=== PATIENT | male | born 1960 | race Caucasian/White ===

== ENCOUNTER 2019-07-30 10:20 | Inpatient (IN) | payer OTHER ==
[2019-07-30] VITALS (10 sets, daily range): BP systolic 118–157; BP diastolic 74–98
[~2019-07-30] VITALS: Ht 177.8 cm; Wt 81.7 kg
[2019-07-30] MEDS ORDERED: ATENOLOL25 MG ORAL (10:25)
[2019-07-30] MEDS ORDERED: Ketorolac 30mg Inj IV ONE (10:30)
[2019-07-30] MEDS ORDERED: Morphine Sulfate 4mg/ml Inj (IV USE ONLY) IVP ONE ×2 (10:30→11:45)
--- NOTE | 2019-07-30 10:34 | Emergency Room Report ---
History of Present Illness General Chief Complaint: Abdominal Pain Source: Patient Present Illness HPI Disclaimer: Please note that this report is being documented using DRAGON technology. This can lead to erroneous entry secondary to incorrect interpretation by the dictating instrument. HPI: 59-year-old male presents for evaluation of abdominal pain. He arrives by EMS after pulling over to the side of the road for sudden onset abdominal pain. He states he was in his usual state of health this morning aside from one episode of diarrhea. While driving from work he experienced sudden onset sharp 10/10 nonradiating left-sided lower pain radiating in the left groin. No injury was reported. He has a history of kidney stones but denied any flank pain, recent dysuria, hematuria. He states it feels somewhat like a kidney stone but far more intense. He is now complaining of pain in the suprapubic region as well. Had one episode of emesis. Denies recent fever, chills, URI symptoms, cough, chest pain, palpitations. Denies any pain in the upper abdomen , GERD-like symptoms. Denies history of pancreatitis, hepatitis or alcohol abuse. PMH: Hypertension, kidney stones PSH: Knee replacement Allergies: Denies Social Hx: Occasional alcohol use Allergies: Coded Allergies: No Known Allergies (Unverified , 07/30/19) COVID-19 Screening Contact w/high risk pt: No Recent Travel to affected area: No Experienced COVID-19 symptoms?: No Nursing Documentation-PMH Past Medical History: No History, Except For Hx Hypertension: Yes - RIGHT KNEE REPLACEMENT Review of Systems All Other Systems: negative except mentioned in HPI Physical Exam Vital Signs Date Time Temp Pulse Resp B/P (MAP) Pulse Ox O2 Delivery O2 Flow Rate FiO2 07/30/19 10:18 97.9 80 16 126/74 (91) 99 Room Air General: Awake and alert, appears uncomfortable, tremulous HEENT: NC/AT. EOMI. Cardiovascular: RRR. S1 and S2 normal. No murmur appreciated Resp: Normal work of breathing. No cough, wheezing or crackles appreciated Abdomen: Abdomen is soft, nondistended. Tenderness palpation in the left lower quadrant, suprapubic and the right lower quadrant without rebound. No tenderness in the upper quadrants. Skin: Intact. No abrasions, laceration or rash over the exposed skin MSK: Normal tone and bulk. Moving all extremities. No obvious deformity. Neuro: Awake and alert. Mentating appropriately. Procedures Critical Care Time Critical Care Time Total critical care time: Approximately 31 minutes Due to a high probability of clinically significant, life threatening deterioration, the patient required the highest level of preparedness to intervene emergently and I personally spent this critical care time directly and personally managing the patient. This critical care time included obtaining a history, examining the patient, pulse oximetry, ordering and reviewing studies , ordering treatments, evaluating response to treatment and updating management plan as needed, frequent reassessment and discussion with other providers as well as arranging for ultimate disposition. This critical to care time was performed to assess and manage the high probability of life-threatening deterioration that could result in multiorgan failure. This critical care time is separate from the separately billable procedures and treating other patients. Medical Decision Making Diagnostic Impression: Primary Impression: Perforated diverticulum of large intestine ER Course This a 59-year-old male presenting for evaluation of sudden onset left-sided abdominal pain rating to the groin. Differential includes was not limited to UTI, pyelonephritis, nephrolithiasis, inguinal hernia, mesenteric ischemia, appendicitis, bowel obstruction, bowel perforation, intra-abdominal abscess, diverticulitis. Given the patient's history and physical exam concern for obstructing kidney stone at this time. Will send for stat noncontrast CT, draw labs, start IV fluids, keep patient n.p.o. Provide IV pain medication and antiemetics. Advance work-up as needed. Laboratory Tests Test 07/30/19 10:30 07/30/19 11:40 White Blood Count 12.9 K/UL (4.8-10.8) H Red Blood Count 5.34 M/UL (4.70-6.10) Hemoglobin 16.2 G/DL (14.2-18.0) Hematocrit 45.5 % (42.0-52.0) Mean Corpuscular Volume 85 FL (80-99) Mean Corpuscular Hemoglobin 30.4 PG (27.0-31.0) Mean Corpuscular Hemoglobin Concent 35.7 G/DL (32.0-36.0) Red Cell Distribution Width 11.1 % (11.6-14.8) L Platelet Count 185 K/UL (150-450) Mean Platelet Volume 9.4 FL (6.5-10.1) Neutrophils (%) (Auto) 79.4 % (45.0-75.0) H Lymphocytes (%) (Auto) 16.0 % (20.0-45.0) L Monocytes (%) (Auto) 3.4 % (1.0-10.0) Eosinophils (%) (Auto) 0.8 % (0.0-3.0) Basophils (%) (Auto) 0.4 % (0.0-2.0) Prothrombin Time 10.8 SEC (9.30-11.50) Prothrombin Time INR 1.0 (0.9-1.1) Activated Partial Thromboplast Time 23 SEC (23-33) Sodium Level 144 MMOL/L (136-145) Potassium Level 4.1 MMOL/L (3.5-5.1) Chloride Level 103 MMOL/L (98-107) Carbon Dioxide Level 25 MMOL/L (21-32) Anion Gap 16 mmol/L (5-15) H Blood Urea Nitrogen 23 mg/dL (7-18) H Creatinine 1.1 MG/DL (0.55-1.30) Estimated Glomerular Filtration Rate > 60 mL/min (>60) Glucose Level 133 MG/DL (74-106) H Calcium Level 10.1 MG/DL (8.5-10.1) Total Bilirubin 1.1 MG/DL (0.2-1.0) H Direct Bilirubin 0.2 MG/DL (0.0-0.3) Aspartate Amino Transferase (AST) 30 U/L (15-37) Alanine Aminotransferase (ALT) 51 U/L (12-78) Alkaline Phosphatase 113 U/L (46-116) Total Protein 8.1 G/DL (6.4-8.2) Albumin 4.8 G/DL (3.4-5.0) Globulin 3.3 g/dL Albumin/Globulin Ratio 1.5 (1.0-2.7) Lipase 105 U/L (73-393) Lactic Acid Level 2.10 mmol/L (0.4-2.0) H Reevaluation Time: 11:40 Last Vital Signs Date Time Temp Pulse Resp B/P (MAP) Pulse Ox O2 Delivery O2 Flow Rate FiO2 07/30/19 10:18 97.9 80 16 126/74 (91) 99 Room Air Reevaluation Impression Alerted by radiology of a possible perforated diverticulitis. Patient was given Zosyn and a surgical consult was called. Will send type and screen as well as coagulation studies as part of preop labs. White count slightly elevated with a neutrophil predominance. Slight elevation in lactate 2.1. The patient is receiving IV fluids and antibiotics. Additional pain medication ordered. Patient will be kept n.p.o and taken to OR by Dr. Sagastume. Will admit to covering physician for [facility] Dr[facility], who agrees with this treatment plan. Disposition: ADMITTED INPATIENT Condition: Serious Asad Parkinson MD Jul 30, 2019 10:34
[2019-07-30 10:46] LABS: BASOPHILS % (AUTO) 0.4 % (0.0-2.0); EOSINOPHILS % (AUTO) 0.8 % (0.0-3.0); HEMATOCRIT 45.5 % (42.0-52.0); HEMOGLOBIN 16.2 G/DL (14.2-18.0); MEAN CORPUSCULAR VOLUME 85 FL (80-99); MONOCYTES % (AUTO) 3.4 % (1.0-10.0); NEUTROPHILS % (AUTO) 79.4 % (45.0-75.0); PLATELET COUNT 185 K/UL (150-450); RED BLOOD COUNT 5.34 M/UL (4.70-6.10); RED CELL DISTRIBUTION WIDTH 11.1 % (11.6-14.8); WHITE BLOOD COUNT 12.9 K/UL (4.8-10.8)
[2019-07-30 10:58] LABS: ANION GAP 16 mmol/L (5-15); BLOOD UREA NITROGEN 23 mg/dL (7-18); CALCIUM 10.1 MG/DL (8.5-10.1); CARBON DIOXIDE 25 MMOL/L (21-32); CHLORIDE 103 MMOL/L (98-107); CREATININE 1.1 MG/DL (0.55-1.30); POTASSIUM 4.1 MMOL/L (3.5-5.1); SODIUM 144 MMOL/L (136-145)
[2019-07-30 11:11] LABS: ALANINE AMINOTRANSFERASE 51 U/L (12-78); ALBUMIN 4.8 G/DL (3.4-5.0); ALBUMIN/GLOBULIN RATIO 1.5 (1.0-2.7); ALKALINE PHOSPHATASE 113 U/L (46-116); ASPARTATE AMINO TRANSFERASE 30 U/L (15-37); BILIRUBIN,TOTAL 1.1 MG/DL (0.2-1.0)
[2019-07-30 11:13] LABS: BILIRUBIN,DIRECT 0.2 MG/DL (0.0-0.3)
[2019-07-30] MEDS ORDERED: Piperacillin/Tazobactam 3.375 GM in NS 110 ML IVPB ONE (11:45)
--- NOTE | 2019-07-30 12:11 | Pre-Procedure Note/Attestation ---
Pre-Procedure Note/Attestation Complete Prior to Procedure Procedure Narrative: diagnostic laparoscopy, possible exploratory laparotomy, possible bowel resection, possible ostomy Indications for Procedure Pre-Operative Diagnosis: perforated viscus, acute abdomen Attestation I attest that I discussed the nature of the procedure; its benefits; risks and complications; and alternatives (and the risks and benefits of such alternatives ), prior to the procedure, with the patient (or the patient's legal life assurance representative). I attest that, if there was a reasonable possibility of needing a blood transfusion, the patient (or the patient's legal life assurance representative) was given the [facility] standardized written summary, pursuant to the Asif Rahel Blood Safety Act ([place] Health and Safety Code # 1645, as amended). I attest that I re-evaluated the patient just prior to the surgery and that there has been no change in the patient's H&P, except as documented below: Rodrigo Sagastume Jul 30, 2019 12:11
--- NOTE | 2019-07-30 12:18 | Consultation ---
History of Present Illness General Reason for Hospitalization: Abdominal Pain Present Illness HPI This is a very pleasant 59-year-old male with history of hypertension and prior kidney stones that presented to [facility] for evaluation of acute onset of abdominal pain with nausea and emesis. Patient arrives by EMS after pulling over to the side of the road for sudden onset abdominal pain with multiple bouts of nonbloody emesis on the side of the road. He states he was in his usual state of health this morning, had breakfast, and thn went to work. While driving home from work he experienced sudden onset sharp 10/10 nonradiating left-sided lower pain radiating in the left groin. He initially believed it may be a kidney stone or potentially pulling a muscle. He has a history of kidney stones but denied any flank pain, recent dysuria, hematuria. He states it feels somewhat like a kidney stone but far more intense. In the emergency department was identified to have any acute abdomen imaging performed identifying likely perforated diverticulitis. Surgery was called to evaluate. Patient seen, patient evaluated, chart reviewed. Patient seen in the emergency department and states that he has 10 out of 10 pain and is very uncomfortable. He has pain with movement. Currently no nausea or vomiting. He has no known history of diverticulitis that he is aware of. Allergies: Coded Allergies: No Known Allergies (Unverified , 07/30/19) COVID-19 Screening Contact w/high risk pt: No Recent Travel to affected area: No Experienced COVID-19 symptoms?: No Medication History Scheduled Atenolol* (Tenormin*), Unknown Dose ORAL DAILY, (Reported) Patient History History Provided By: Patient, Medical Record, PMD Healthcare decision maker Resuscitation status Advanced Directive on File Past Medical/Surgical History Past Medical/Surgical History: (1) Perforated diverticulum of large intestine Review of Systems Review of Symptoms General ROS: no weight loss or fever Psychological ROS: no depression or mood changes, no memory loss Ophthalmic ROS: no visual changes or eye irritation ENT ROS: no nasal congestion, hearing loss, dizziness Allergy and Immunology ROS: no allergic symptoms or urticaria Hematological and Lymphatic ROS: no swollen glands, unusual bleeding or bruising Endocrine ROS: no polyuria, polydipsia, weight changes, temperature intolerance Respiratory ROS: no cough, shortness of breath, or wheezing Cardiovascular ROS: no chest pain or dyspnea on exertion Gastrointestinal ROS: abdominal pain, no bright red blood in stool. Musculoskeletal ROS: no myalgias or arthralgias Neurological ROS: no TIA or stroke symptoms Dermatological ROS: no new or changing skin lesions, rashes or pruritis Physical Exam Physical Exam General appearance: alert, cooperative, no distress, appears stated age Head: Normocephalic, without obvious abnormality, atraumatic Eyes: conjunctivae/corneas clear. PERRL, EOM's intact. Fundi benign Throat: Lips, mucosa, and tongue normal. Teeth and gums normal Neck: supple, symmetrical, trachea midline, no adenopathy, thyroid: not enlarged, symmetric, no tenderness/mass/nodules, no carotid bruit and no JVD Lungs: clear to auscultation bilaterally Heart: regular rate and rhythm, S1, S2 normal, no murmur, click, rub or gallop Abdomen: rigid, tender, peritonitis, rebound, guarding. Extremities: extremities normal, atraumatic, no cyanosis or edema Pulses: 2+ and symmetric Skin: Skin color, texture, turgor normal. No rashes or lesions Neurologic: Grossly normal Last 24 Hour Vital Signs Date Time Temp Pulse Resp B/P (MAP) Pulse Ox O2 Delivery O2 Flow Rate FiO2 07/30/19 11:06 97.9 07/30/19 11:05 97.9 07/30/19 10:28 80 16 Room Air 07/30/19 10:20 97.9 86 15 126/74 99 Room Air 07/30/19 10:18 97.9 80 16 126/74 (91) 99 Room Air Laboratory Tests Test 07/30/19 10:30 07/30/19 11:40 White Blood Count 12.9 K/UL (4.8-10.8) H Red Blood Count 5.34 M/UL (4.70-6.10) Hemoglobin 16.2 G/DL (14.2-18.0) Hematocrit 45.5 % (42.0-52.0) Mean Corpuscular Volume 85 FL (80-99) Mean Corpuscular Hemoglobin 30.4 PG (27.0-31.0) Mean Corpuscular Hemoglobin Concent 35.7 G/DL (32.0-36.0) Red Cell Distribution Width 11.1 % (11.6-14.8) L Platelet Count 185 K/UL (150-450) Mean Platelet Volume 9.4 FL (6.5-10.1) Neutrophils (%) (Auto) 79.4 % (45.0-75.0) H Lymphocytes (%) (Auto) 16.0 % (20.0-45.0) L Monocytes (%) (Auto) 3.4 % (1.0-10.0) Eosinophils (%) (Auto) 0.8 % (0.0-3.0) Basophils (%) (Auto) 0.4 % (0.0-2.0) Prothrombin Time 10.8 SEC (9.30-11.50) Prothromb Time International Ratio 1.0 (0.9-1.1) Activated Partial Thromboplast Time 23 SEC (23-33) Sodium Level 144 MMOL/L (136-145) Potassium Level 4.1 MMOL/L (3.5-5.1) Chloride Level 103 MMOL/L (98-107) Carbon Dioxide Level 25 MMOL/L (21-32) Anion Gap 16 mmol/L (5-15) H Blood Urea Nitrogen 23 mg/dL (7-18) H Creatinine 1.1 MG/DL (0.55-1.30) Estimat Glomerular Filtration Rate > 60 mL/min (>60) Glucose Level 133 MG/DL (74-106) H Calcium Level 10.1 MG/DL (8.5-10.1) Total Bilirubin 1.1 MG/DL (0.2-1.0) H Direct Bilirubin 0.2 MG/DL (0.0-0.3) Aspartate Amino Transf (AST/SGOT) 30 U/L (15-37) Alanine Aminotransferase (ALT/SGPT) 51 U/L (12-78) Alkaline Phosphatase 113 U/L (46-116) Total Protein 8.1 G/DL (6.4-8.2) Albumin 4.8 G/DL (3.4-5.0) Globulin 3.3 g/dL Albumin/Globulin Ratio 1.5 (1.0-2.7) Lipase 105 U/L (73-393) Lactic Acid Level Pending Height (Feet): 5 Height (Inches): 10.00 Weight (Pounds): 190 Medications Current Medications Medications (Trade) Dose Ordered Sig/José Miguel Route PRN Reason Start Time Stop Time Status Last Admin Dose Admin Piperacillin Sod/ Tazobactam Sod 3.375 gm/Sodium Chloride 110 ml @ 220 mls/hr ONCE ONCE IVPB 07/30/19 11:45 07/30/19 12:14 07/30/19 11:53 Sodium Chloride 1,000 ml @ 150 mls/hr Q6H40M IV 07/30/19 11:45 08/29/19 11:44 Assessment/Plan Problem List: (1) Perforated diverticulum of large intestine Assessment & Plan: This is a 59-year-old male who presented with acute abdominal pain nausea and emesis. Pain was so severe and acute that he pulled over while driving began to have emesis and was nailed over and required EMS to bring him to the emergency department department. In the emergency department he was examined by myself and identified to have an acute abdomen with peritonitis rebound guarding. CT was reviewed by myself and with the radiologist. There are some small focal areas of free air and some areas of stranding. There is no overt free fluid or free air but given how acute the processes this is understandable. Given patient's acute abdomen surgery is indicated and recommended. Had a long discussion with patient at the bedside regarding findings and his current condition. He is very uncomfortable and exam is very concerning. Given these findings we will proceed to operating room for diagnostic laparoscopy possible exploratory laparotomy possible bowel resection possible ostomy. I discussion with patient about the potential intraoperative plans after evaluation. He expressed understanding. N.p.o. IV fluids IV antibiotics Consent to OR thank you ICD Codes: K57.20 - Diverticulitis of large intestine with perforation and abscess without bleeding SNOMED: [id number] Rodrigo Sagastume Jul 30, 2019 12:18
[2019-07-30] MEDS ORDERED: XANAX0.5 MG ORAL (12:37)
[2019-07-30] MEDS ORDERED: Rocuronium Bromide 50mg/5ml Inj IV ONE (13:04)
[2019-07-30] MEDS ORDERED: Bupivacaine 0.25% Inj 30ml INJ ONE (13:04)
[2019-07-30] MEDS ORDERED: Succinylcholine 20mg/ml 10ml vial ONE (13:04)
[2019-07-30] MEDS ORDERED: Midazolam 2mg/2ml Inj ONE (13:05)
[2019-07-30] MEDS ORDERED: fentaNYL 100 mcg/2 mL IV ONE (13:05)
[2019-07-30 13:07] LABS: APPEARANCE,URINE CLEAR; BILIRUBIN, URINE NEGATIVE (NEGATIVE); GLUCOSE, URINE (UA) NEGATIVE (NEGATIVE); KETONES,URINE 1+ (NEGATIVE); LEUKOCYTE ESTERASE ,URINE 1+ (NEGATIVE); NITRITE,URINE NEGATIVE (NEGATIVE); PH,URINE 5 (4.5-8.0); PROTEIN,URINE 1+ (NEGATIVE); UROBILINOGEN,URINE 1 MG/DL (0.0-1.0)
[2019-07-30 13:09] LABS: COLOR,URINE YELLOW
[2019-07-30] MEDS ORDERED: Lidocaine 1% MPF 10mg/ml 5ml ONE (13:12)
[2019-07-30] MEDS ORDERED: Propofol 200mg/20ml IV ONE (13:12)
--- NOTE | 2019-07-30 13:29 | Diagnostic Imaging Report ---
Indication: Diffuse abdominal pain Technique: Spiral acquisitions obtained through the abdomen and pelvis. No oral contrast utilized, per emergency room physician request No IV contrast utilized per emergency room physician request.. Multiplanar reconstructions were generated. Total dose length product 329 mGycm. CTDIvol(s) 6 mGy. Dose reduction achieved using automated exposure control Comparison: None Findings: The lack of enteric contrast limits assessment of the GI tract. There is fairly extensive colonic diverticulosis. There is inflammatory change seen within the fat surrounding the sigmoid colon, and a small extraluminal gas bubble is seen adjacent to the sigmoid colon. A small amount of free fluid is seen within the pelvis. There is some inflammatory change also seen of the fat adjacent to the the distal descending colon. There is a small amount of fluid tracking along the fascia adjacent to the distal descending colon. More numerous gas bubbles are seen in the left upper quadrant omental fat. Inflammatory changes also seen in the transverse mesial colon to the right of midline. The appendix appears normal although is somewhat obscured by the adjacent free fluid. There are numerous prominent mesenteric root lymph nodes demonstrated. There is wall thickening of the proximal ascending colon. There is no definite surrounding inflammation, however. No small bowel distention. The distal esophagus is unremarkable. Exophytic gastric structure coming off of the posterior fundus probably represents a small gastric diverticulum. Lack of IV contrast limits assessment of the solid organs. The liver is unremarkable. The gallbladder contains gallstones. No biliary ductal dilatation. The pancreas, spleen, adrenals are unremarkable. The kidneys demonstrate numerous small calyceal calculi bilaterally, the largest in the lower pole of the left kidney measuring up to 4 mm in diameter. The infrarenal abdominal aorta demonstrates focal saccular ectasia, measuring up to 28 mm in diameter, but is not quite aneurysmal. No pelvic mass or adenopathy. The included lung bases demonstrate posterior dependent atelectatic changes bilaterally. The bones demonstrate minimal degenerative spondylosis changes. Impression: Inflammatory changes surrounding the sigmoid colon and also the distal descending colon. Extraluminal gas seen within the pelvic fat and left upper quadrant transverse mesial colon. Extensive colonic diverticulosis. Fluid within the left paracolic gutter and pelvis. Findings most likely represent acute diverticulitis with microperforation, most likely of the sigmoid colon. However, appearance is somewhat unusual as the inflammatory changes of the fat are more diffuse than focal and are also seen adjacent other segments of the colon. Therefore, other etiologies should also be considered, such as colitis or enteritis Mesenteric root lymphadenopathy. Suspect reactive related to the above Cholelithiasis Ectatic but not quite aneurysmal infrarenal abdominal aorta Nonobstructive bilateral intrarenal calculi Other findings as noted, including degenerative spondylosis changes, posterior dependent pulmonary atelectatic changes, probable small gastric diverticulum Critical value findings discussed by phone with Dr. Parkinson in the emergency room previously The CT scanner at [facility] is accredited by the [employer] and the scans are performed using protocols designed to limit radiation exposure to as low as reasonably achievable to attain images of sufficient resolution adequate for diagnostic evaluation.
[2019-07-30] MEDS ORDERED: Morphine Sulfate 10mg/ml Inj ONE (14:20)
[2019-07-30] MEDS ORDERED: Sodium Chloride 10ml vial INJ ONE (14:21)
[2019-07-30] MEDS ORDERED: Glycopyrrolate 0.2mg/ml 1ml Vial ONE (14:21)
[2019-07-30] MEDS ORDERED: LR 1000ml 1,000 ML IVLG SCH (14:34)
--- NOTE | 2019-07-30 14:34 | Anethesia Preoperative Eval ---
Anesthesia Pre-op PMH/ROS General Date of Evaluation: Jul 30, 2019 Time of Evaluation: 12:55 Anesthesiologist: Jo-Ann ASA Score: ASA 2 Mallampati Score Class I : Soft palate, uvula, fauces, pillars visible Class II: Soft palate, uvula, fauces visible Class III: Soft palate, base of uvula visible Class IV: Only hard plate visible Mallampati Classification: Class II Surgeon: Rogers Diagnosis: Perforated bowel Surgical Procedure: Ex laparotomy Anesthesia History: none Family History: no anesthesia problems Allergies: Coded Allergies: No Known Allergies (Unverified , 07/30/19) Medications: see eMAR Patient NPO?: Yes Past Medical History Cardiovascular: Reports: HTN - stable on meds; Denies: CAD, [place], valve dz, arrhythmia, other Pulmonary: Denies: asthma, COPD, HAO, other Gastrointestinal/Genitourinary: Reports: GERD; Denies: CRI, ESRD, other Neurologic/Psychiatric: Reports: depression/anxiety; Denies: dementia, CVA, TIA, other Endocrine: Denies: DM, hypothyroidism, steroids, other HEENT: Denies: cataract (L), cataract (R), glaucoma, [place] (L), [place] (R), other Hematology/Immune: Denies: anemia, DVT, bleeding disorder, other Musculoskeletal/Integumentary: Denies: OA, RA, DJD, DDD, edema, other PMH Narrative: as above. Admitted for acute abdominal pain recurrent nausea and vomiting PSxH Narrative: R knee arthroplasty Anesthesia Pre-op Phys. Exam Physician Exam Last Vital Signs Date Time Temp Pulse Resp B/P (MAP) Pulse Ox O2 Delivery O2 Flow Rate FiO2 07/30/19 13:19 99.6 90 16 130/84 97 Room Air 90 Constitutional: NAD Neurologic: CN 2-12 intact Cardiovascular: RRR, no M/R/G Respiratory: CTA Gastrointestinal: other - Slightly distended, tender on palpation Airway Exam Mallampati Score: Class II MO: limited Neck: flexible ROM: full Teeth: intact Dentures: no upper, no lower Anesthesia Pre-op A/P Labs Hematology Test 07/30/19 10:30 White Blood Count 12.9 K/UL (4.8-10.8) H Red Blood Count 5.34 M/UL (4.70-6.10) Hemoglobin 16.2 G/DL (14.2-18.0) Hematocrit 45.5 % (42.0-52.0) Mean Corpuscular Volume 85 FL (80-99) Mean Corpuscular Hemoglobin 30.4 PG (27.0-31.0) Mean Corpuscular Hemoglobin Concent 35.7 G/DL (32.0-36.0) Red Cell Distribution Width 11.1 % (11.6-14.8) L Platelet Count 185 K/UL (150-450) Mean Platelet Volume 9.4 FL (6.5-10.1) Neutrophils (%) (Auto) 79.4 % (45.0-75.0) H Lymphocytes (%) (Auto) 16.0 % (20.0-45.0) L Monocytes (%) (Auto) 3.4 % (1.0-10.0) Eosinophils (%) (Auto) 0.8 % (0.0-3.0) Basophils (%) (Auto) 0.4 % (0.0-2.0) Coagulation Test 07/30/19 10:30 Prothrombin Time 10.8 SEC (9.30-11.50) Prothromb Time International Ratio 1.0 (0.9-1.1) Activated Partial Thromboplast Time 23 SEC (23-33) Chemistry Test 07/30/19 10:30 07/30/19 11:40 07/30/19 12:25 Sodium Level 144 MMOL/L (136-145) Potassium Level 4.1 MMOL/L (3.5-5.1) Chloride Level 103 MMOL/L (98-107) Carbon Dioxide Level 25 MMOL/L (21-32) Anion Gap 16 mmol/L (5-15) H Blood Urea Nitrogen 23 mg/dL (7-18) H Creatinine 1.1 MG/DL (0.55-1.30) Estimat Glomerular Filtration Rate > 60 mL/min (>60) Glucose Level 133 MG/DL (74-106) H Calcium Level 10.1 MG/DL (8.5-10.1) Total Bilirubin 1.1 MG/DL (0.2-1.0) H Direct Bilirubin 0.2 MG/DL (0.0-0.3) Aspartate Amino Transf (AST/SGOT) 30 U/L (15-37) Alanine Aminotransferase (ALT/SGPT) 51 U/L (12-78) Alkaline Phosphatase 113 U/L (46-116) Total Protein 8.1 G/DL (6.4-8.2) Albumin 4.8 G/DL (3.4-5.0) Globulin 3.3 g/dL Albumin/Globulin Ratio 1.5 (1.0-2.7) Lipase 105 U/L (73-393) Lactic Acid Level 2.10 mmol/L (0.4-2.0) H 1.90 mmol/L (0.66-2.22) Risk Assessment & Plan Assessment: ASA 2E Plan: GA with ETT Status Change Before Surgery: No Pre-Antibiotics Drug: Ancerf 1gr. Given Within 1 Hr of Incision: Yes Time Given: 13:52 Jt Busch MD Jul 30, 2019 14:34
[2019-07-30] MEDS ORDERED: NS Irrig 1000ml IRRIG ONE (14:36)
[2019-07-30] MEDS ORDERED: DiphenhydrAMINE 50mg/ml Inj IVP PRN ×2 (14:45→17:45)
[2019-07-30] MEDS ORDERED: Acetaminophen (Non formulary) 100 ML IV ONE (14:45)
[2019-07-30] MEDS ORDERED: Hydromorphone 0.5mg/0.5ml inj IVP PRN (14:45)
[2019-07-30] MEDS ORDERED: Ketorolac 30mg Inj IV PRN (14:45)
--- NOTE | 2019-07-30 17:15 | Brief Operative Note ---
Immediate Post Operative Note Operative Note Pre-op Diagnosis: perforated viscus, acute abdomen Procedure: 1. diagnostic laparoscopy 2. exploratory laparotomy 3. left colectomy with primary end to end anastomosis 4. mobilization of splenic flexture 5. omentectomy 6. abdominal washout Surgeon: roxie Anesthesiologist: beny Anesthesia: general Specimen: yes Complications: none Condition: stable Fluids: see records Estimated Blood Loss: volume - 50 Drains: none Implant(s) used?: No Rodrigo Sagastume Jul 30, 2019 17:15
--- NOTE | 2019-07-30 17:19 | Immediate Post-Op Evaluation ---
Immediate Post-Op Evalulation Immediate Post-Op Evalulation Procedure: Diagnostic lapqaroscopy,ex.laparotomy bowel resection Date of Evaluation: Jul 30, 2019 Time of Evaluation: 17:18 IV Fluids: 1999 Blood Products: none Estimated Blood Loss: 100 Urinary Output: 200 Blood Pressure Systolic: 146 Blood Pressure Diastolic: 86 Pulse Rate: 92 Respiratory Rate: 20 O2 Sat by Pulse Oximetry: 99 Temperature (Fahrenheit): 98.2 Pain Score (1-10): 2 Nausea: No Vomiting: No Complications none Patient Status: awake, patent, extubated, none Hydration Status: adequate Jt Busch MD Jul 30, 2019 17:19
[2019-07-30] MEDS ORDERED: Morphine Sulfate 2mg/ml Inj(IV/IM USE ONLY) IVP PRN (17:45)
[2019-07-30] MEDS ORDERED: Morphine Sulfate 4mg/ml Inj (IV USE ONLY) IVP PRN (17:45)
--- NOTE | 2019-07-30 19:00 | Operative Note - Dictated ---
DATE OF OPERATION: 07/30/2019 PREOPERATIVE DIAGNOSES: 1. Perforated viscus. 2. Acute abdomen. 3. Abdominal peritonitis. POSTOPERATIVE DIAGNOSIS: 1. Perforated sigmoid diverticulitis with fecal peritonitis. OPERATION PERFORMED: 1. Diagnostic laparoscopy converted to 2. Exploratory laparotomy. 3. Left colectomy with primary end-to-end hand sewn anastomosis. 4. Mobilization of splenic flexure. 5. Partial Omentectomy. 6. Open lysis of adhesions. 7. Abdominal washout with closure. ATTENDING SURGEON: Rodrigo Sagastume M.D. SPIN INSTRUCTOR: None. ANESTHESIOLOGIST: Jt Busch M.D. ANESTHESIA: General GETA. SPECIMENS: 1. Omentum. 2. Left colon. COMPLICATIONS: None. DRAINS: None. COUNTS: Sponge and needle count correct x2. WOUND CLASSIFICATION: Class IV. ANTIBIOTICS: The patient given IV antibiotics in the emergency department prior to going to the operating room. INDICATIONS FOR PROCEDURE: This is a 59-year-old male who presented to [facility] by EMS for acute abdominal pain, nausea, and emesis. The patient states that he was feeling some abdominal discomfort while driving and then acute onset of worsening pain, pulled over and started having persistent nausea and emesis with acute 10/10 abdominal pain, kneeling over, unable to move. In the emergency operating room, he was identified to have leukocytosis, acute abdomen with peritonitis, and CT scan with perforated viscus. Upon examination by myself in the emergency department, the patient had acute abdomen with peritonitis, generalized tenderness, rebound, and guarding. Given these findings, emergency surgery was indicated and recommended. I had a long discussion with the patient with regards to the above findings and care plan. The patient expressed understanding and consented to surgery. We discussed diagnostic laparoscopy, potential exploratory laparotomy, potential bowel resection, potential ostomy. OPERATIVE NOTE: The patient was taken to the operating room and placed on the operating table in supine position with bilateral arms out. All bony prominences were well padded. SCDs placed. Preoperative time-out taken to identify the patient, procedure, operative staff, and surgical staff. General anesthesia was induced. The patient was intubated. The abdomen was clipped, prepped, and draped in standard surgical fashion. Valentin Inserted. An infraumbilical incision was made and carried down through the subcutaneous tissue. The fascia was elevated and incised. A small incision was made in the fascia and a 12 mm Portia trocar was inserted under direct visualization without complication. The abdomen was insufflated to 12 to 15 mmHg. The patient tolerated the insufflation well. Laparoscope was inserted and the abdomen was inspected. Immediately upon inspecting the abdomen, there was significant amount of omental adhesions noted to the anterior abdominal wall and notable fecalith peritonitic free fluid as there was murky fluid with fecal contents within it. At this time, given the generalized fecalith peritonitis, significant adhesions, and inflammatory changes and these findings, decision was made to convert to exploratory laparotomy. Camera was removed and the abdomen was desufflated and the port removed. The midline incision was carried inferior to the pubic tubercle through the subcutaneous tissue and the fascia and the abdomen was entered without complication. The incision was also extended proximally as well. A Bookwalter retractor was placed and the abdomen was inspected. the fluid was suctioned and irrigated out until clear. The omental adhesions to the anterior abdominal wall inflammatory changes were dissected down and lysis of adhesions were completed. Following complete adhesiolysis of the omentum and when it was freed, the abdomen was then inspected in all quadrants. The liver, gallbladder and right upper quadrant were otherwise normal. The hepatic flexure was otherwise normal. The left upper quadrant, spleen, and stomach were otherwise normal without complication. The splenic flexure was normal. The transverse colon was otherwise healthy and normal. Omentum was thickened from inflammatory changes. The ligament of Treitz was identified and the small bowel run from ligament of Treitz to the ileocecal valve. No complication or abnormality of the small bowel was identified. The appendix was identified and somewhat retrocecal. The cecum, ascending colon, transverse colon were evaluated, noted to be normal. The descending colon just distal to the splenic flexure was identified to have multiple diverticula as well as the sigmoid with the distal sigmoid being area perforation clearly identified with a hole being noted as well as significant inflammatory changes and thickening in the sigmoid colon. At the sacral promontory, the bowel entering into the rectum was otherwise normal. At this time, decision was made to proceed with the resection given an open hole in the colon identified inflammatory changes. The white line of Toldt was incised and the sigmoid and descending colon mobilized. The patient had diverticulitis all the way down to the distal sigmoid colon. Therefore, the distal sigmoid colon was dissected out and once dissected out circumferentially, it was divided using a linear stapler at the peritoneal reflection. Following this, the mesentery of the sigmoid colon was divided including the sigmoidal arteries and left colic artery. Given the area of inflammation followed by the significant diverticula in the descending colon required mobilization of splenic flexure. The splenic flexure was mobilized down and once completely mobilized, the splenic flexure was brought into the operative field over its mesenteric pedicle. Unfortunately majority of the omentum was inflamed and interfering with the remainder of the procedure and therefore omentectomy was performed using Thunderbeat energy device and omentum was sent off to pathology for review. At this time, the transverse colon to the splenic flexure was identified followed by the descending colon. Decision was made to find appropriate anastomotic site for primary anastomosis using the left transverse colon given the significant disease process in the descending colon and sigmoid. The transverse colon was mobile. An area was identified in the left transverse colon for appropriate anastomosis and identified to be with enough laxity and good blood supply. A window was made in the mesentery and the left transverse colon was divided using linear stapler and the remaining of the mesentery was divided using Thunderbeat energy device. The specimen was then sent off to pathology as left colon. Hemostasis was acheived and noted. The abdomen was irrigated and suctioned clean. At this time, we turned our attention to making a primary anastomosis end-to-end hand-sewn between the left transverse colon that was healthy with good blood supply as well as the proximal rectum at the sacral promontory. The staple lines were both cut using Metzenbaum scissors. Hemostasis obtained using electrocautery. Stay sutures placed on the lateral ends of the bowel and 2-0 Vicryl running sutures were used to reapproximate end-to-end anastomosis of the two ends of the bowel with the posterior layer being performed first. Once this was completed, a second 2-0 Vicryl suture was used and anterior layer was reapproximated. The ends were tied together. A satisfactory hemostatic primary end-to-end anastomosis was performed and completed without complication. The bowel was palpated and lumen was clearly identifiable. Bowel was evaluated. No ischemia was noted. No tension was noted as there was good laxity of the proximal bowel. At this time, the abdomen was irrigated and suctioned again and noted to be clear, hemostatic and otherwise without complication. The bowel was placed in anatomic position including the small bowel and the remainder of the large bowel. At this time, decision was made to begin the conclusion of our procedure. The fascia was reapproximated using 0 PDS running looped suture. The skin incision was irrigated cleansed and reapproximated using surgical skin mary. Dressings were applied. The patient tolerated the procedure well, was taken to the postanesthetic care unit in stable condition. Rodrigo Sagastume M.D. DR: Mireya JOB#: [id number] CC: ESTEFANY
[2019-07-30] MEDS: D5 1/2NS w/KCl 20mEq 1,000 ML IV SCH (19:44)
[2019-07-30] MEDS: Morphine Sulfate 2mg/ml Inj(IV/IM USE ONLY) IVP PRN (20:12)
--- NOTE | 2019-07-30 21:05 | History & Physical ---
History and Physical History & Physicial IM H&p chart reviewed full note will be dictated Devon Mckeon MD Jul 30, 2019 21:05
[2019-07-30] MEDS: Piperacillin/Tazobactam 3.375 GM in NS 110 ML IVPB SCH (21:36)
[2019-07-30] MEDS: Heparin 5000 units/ml inj SUBQ SCH (21:39)
[2019-07-31] MEDS: Morphine Sulfate 2mg/ml Inj(IV/IM USE ONLY) IVP PRN ×2 (00:25→05:52)
[2019-07-31 01:15] VITALS: BP 117/82
[2019-07-31] MEDS: D5 1/2NS w/KCl 20mEq 1,000 ML IV SCH ×4 (02:09→18:33)
[2019-07-31 04:00] VITALS: BP 119/84
[2019-07-31] MEDS: Piperacillin/Tazobactam 3.375 GM in NS 110 ML IVPB SCH ×3 (05:20→21:26)
[2019-07-31 06:51] LABS: HEMATOCRIT 37.4 % (42.0-52.0); HEMOGLOBIN 13.4 G/DL (14.2-18.0); MEAN CORPUSCULAR VOLUME 85 FL (80-99); PLATELET COUNT 130 K/UL (150-450); RED BLOOD COUNT 4.38 M/UL (4.70-6.10); RED CELL DISTRIBUTION WIDTH 11.4 % (11.6-14.8); WHITE BLOOD COUNT 11.3 K/UL (4.8-10.8)
[2019-07-31 07:31] LABS: ALANINE AMINOTRANSFERASE 32 U/L (12-78); ALBUMIN 3.2 G/DL (3.4-5.0); ALBUMIN/GLOBULIN RATIO 1.1 (1.0-2.7); ALKALINE PHOSPHATASE 63 U/L (46-116); ANION GAP 10 mmol/L (5-15); ASPARTATE AMINO TRANSFERASE 28 U/L (15-37); BILIRUBIN,TOTAL 1.9 MG/DL (0.2-1.0); BLOOD UREA NITROGEN 22 mg/dL (7-18); CALCIUM 8.4 MG/DL (8.5-10.1); CARBON DIOXIDE 26 MMOL/L (21-32); CHLORIDE 104 MMOL/L (98-107); CREATININE 0.9 MG/DL (0.55-1.30); POTASSIUM 3.8 MMOL/L (3.5-5.1); SODIUM 140 MMOL/L (136-145)
[2019-07-31 07:39] LABS: BILIRUBIN,DIRECT 0.3 MG/DL (0.0-0.3)
[2019-07-31 08:00] VITALS: BP 138/80
[2019-07-31] MEDS: Heparin 5000 units/ml inj SUBQ SCH ×3 (08:57→21:35)
--- NOTE | 2019-07-31 09:52 | 48 Hour Post Anesthesia Eval ---
Post Anesthesia Evaluation Procedure: Diagnostic lapqaroscopy,ex.laparotomy bowel resection Date of Evaluation: Jul 31, 2019 Time of Evaluation: 09:51 Blood Pressure Systolic: 146 0: 74 Pulse Rate: 72 Respiratory Rate: 20 Temperature (Fahrenheit): 97.6 O2 Sat by Pulse Oximetry: 98 Airway: patent Nausea: No Vomiting: No Pain Intensity: 3 Hydration Status: adequate Cardiopulmonary Status: stable Mental Status/LOC: patient returned to baseline Follow-up Care/Observations: n/a Post-Anesthesia Complications: none Follow-up care needed: N/A Jt Busch MD Jul 31, 2019 09:52
[2019-07-31] MEDS ORDERED: Morphine Sulfate 2mg/ml Inj(IV/IM USE ONLY) IVP PRN ×2 (10:15)
[2019-07-31] MEDS ORDERED: DiphenhydrAMINE 50mg/ml Inj IVP PRN (10:15)
[2019-07-31] MEDS: Morphine Sulfate 4mg/ml Inj (IV USE ONLY) IVP PRN ×2 (10:25→14:26)
--- NOTE | 2019-07-31 11:12 | Surgery Progress Note ---
Surgery Progress Note Subjective Procedure Performed 1. diagnostic laparoscopy 2. exploratory laparotomy 3. left colectomy with primary end to end anastomosis 4. mobilization of splenic flexture 5. omentectomy 6. abdominal washout Additional Comments no acute events incisional pain using IS Objective Last 24 Hour Vital Signs Date Time Temp Pulse Resp B/P (MAP) Pulse Ox O2 Delivery O2 Flow Rate FiO2 07/31/19 10:55 97.6 07/31/19 09:52 72 20 98 07/31/19 09:26 Nasal Cannula 2.0 07/31/19 09:24 71 07/31/19 08:00 96.8 65 18 138/80 (99) 98 07/31/19 04:00 98.1 83 18 119/84 (96) 97 07/31/19 04:00 70 07/31/19 03:49 Nasal Cannula 2.0 07/31/19 03:24 2.0 07/31/19 01:15 98.2 82 17 117/82 (94) 96 07/31/19 00:00 85 07/31/19 00:00 3.0 07/31/19 00:00 Nasal Cannula 2.0 07/30/19 20:00 85 07/30/19 20:00 99.0 83 19 125/83 (97) 96 07/30/19 20:00 3.0 07/30/19 19:01 Nasal Cannula 2.0 07/30/19 19:00 99.3 83 16 147/89 (108) 97 07/30/19 18:10 98.4 76 19 145/95 100 Nasal Cannula 3 76 07/30/19 18:00 79 19 143/94 100 Nasal Cannula 3 79 07/30/19 17:45 77 19 153/93 100 Nasal Cannula 3 77 07/30/19 17:27 98 19 147/97 100 Simple Mask 6 100 07/30/19 17:20 99 18 157/98 100 Simple Mask 6 99 07/30/19 17:19 92 20 99 07/30/19 17:11 98.5 96 20 118/86 99 Simple Mask 6 96 07/30/19 13:19 99.6 90 16 130/84 97 Room Air 90 07/30/19 12:32 99.7 80 16 147/80 96 Room Air I&O Intake and Output 07/30/19 07/31/19 19:00 07:00 Intake Total 1260 ml 1332.5 ml Output Total 150 ml Balance 1110 ml 1332.5 ml Intake IV Total 1260 ml 1332.5 ml Output Urine Total 150 ml # Voids 1 Dressing: dry Wound: clean Cardiovascular: RSR Respiratory: clear Abdomen: soft, tenderness, non-distended, decreased bowel sounds Extremities: no edema, no tenderness, no cyanosis Laboratory Tests Test 07/30/19 11:40 07/30/19 12:25 07/31/19 06:16 Lactic Acid Level 2.10 mmol/L (0.4-2.0) H 1.90 mmol/L (0.66-2.22) Urine Color Yellow Urine Appearance Clear Urine pH 5 (4.5-8.0) Urine Specific [place] 1.020 (1.005-1.035) Urine Protein 1+ (NEGATIVE) H Urine Glucose (UA) Negative (NEGATIVE) Urine Ketones 1+ (NEGATIVE) H Urine Blood Negative (NEGATIVE) Urine Nitrite Negative (NEGATIVE) Urine Bilirubin Negative (NEGATIVE) Urine Urobilinogen 1 MG/DL (0.0-1.0) H Urine Leukocyte Esterase 1+ (NEGATIVE) H Urine RBC 2-4 /HPF (0 - 0) H Urine WBC 2-4 /HPF (0 - 0) Urine Squamous Epithelial Cells Occasional /LPF Urine Bacteria Occasional /HPF (NONE) White Blood Count 11.3 K/UL (4.8-10.8) H Red Blood Count 4.38 M/UL (4.70-6.10) L Hemoglobin 13.4 G/DL (14.2-18.0) L Hematocrit 37.4 % (42.0-52.0) L Mean Corpuscular Volume 85 FL (80-99) Mean Corpuscular Hemoglobin 30.5 PG (27.0-31.0) Mean Corpuscular Hemoglobin Concent 35.8 G/DL (32.0-36.0) Red Cell Distribution Width 11.4 % (11.6-14.8) L Platelet Count 130 K/UL (150-450) L Mean Platelet Volume 9.2 FL (6.5-10.1) Neutrophils (%) (Auto) % (45.0-75.0) Lymphocytes (%) (Auto) % (20.0-45.0) Monocytes (%) (Auto) % (1.0-10.0) Eosinophils (%) (Auto) % (0.0-3.0) Basophils (%) (Auto) % (0.0-2.0) Differential Total Cells Counted 100 Neutrophils % (Manual) 86 % (45-75) H Lymphocytes % (Manual) 8 % (20-45) L Monocytes % (Manual) 5 % (1-10) Eosinophils % (Manual) 1 % (0-3) Basophils % (Manual) 0 % (0-2) Band Neutrophils 0 % (0-8) Platelet Estimate Decreased L Platelet Morphology Normal Red Blood Cell Morphology Normal Sodium Level 140 MMOL/L (136-145) Potassium Level 3.8 MMOL/L (3.5-5.1) Chloride Level 104 MMOL/L (98-107) Carbon Dioxide Level 26 MMOL/L (21-32) Anion Gap 10 mmol/L (5-15) Blood Urea Nitrogen 22 mg/dL (7-18) H Creatinine 0.9 MG/DL (0.55-1.30) Estimat Glomerular Filtration Rate > 60 mL/min (>60) Glucose Level 149 MG/DL (74-106) H Calcium Level 8.4 MG/DL (8.5-10.1) L Total Bilirubin 1.9 MG/DL (0.2-1.0) H Direct Bilirubin 0.3 MG/DL (0.0-0.3) Aspartate Amino Transf (AST/SGOT) 28 U/L (15-37) Alanine Aminotransferase (ALT/SGPT) 32 U/L (12-78) Alkaline Phosphatase 63 U/L (46-116) Total Protein 6.1 G/DL (6.4-8.2) L Albumin 3.2 G/DL (3.4-5.0) L Globulin 2.9 g/dL Albumin/Globulin Ratio 1.1 (1.0-2.7) Plan Problems: (1) Perforated diverticulum of large intestine Assessment & Plan: This is a 59-year-old male who presented with acute abdominal pain nausea and emesis. Pain was so severe and acute that he pulled over while driving began to have emesis and was nailed over and required EMS to bring him to the emergency department department. In the emergency department he was examined by myself and identified to have an acute abdomen with peritonitis rebound guarding. CT was reviewed by myself and with the radiologist. There are some small focal areas of free air and some areas of stranding. There is no overt free fluid or free air but given how acute the processes this is understandable. Given patient's acute abdomen surgery is indicated and recommended. Had a long discussion with patient at the bedside regarding findings and his current condition. He is very uncomfortable and exam is very concerning. Given these findings we will proceed to operating room for diagnostic laparoscopy possible exploratory laparotomy possible bowel resection possible ostomy. I discussion with patient about the potential intraoperative plans after evaluation. He expressed understanding. N.p.o. IV fluids IV antibiotics Consent to OR thank you s/p diag lap, ex lap, colectomy discussed op findings npo iv fluids iv abx ramos until ambulatory is Rodrigo Sagastume Jul 31, 2019 11:12
[2019-07-31 11:20] VITALS: BP 149/82
[2019-07-31] MEDS ORDERED: LR 1000ml ONE (13:00)
[2019-07-31] MEDS ORDERED: Neostigmine 1mg/ml 10ml Inj ONE (13:00)
[2019-07-31] MEDS ORDERED: NS Irrig 1000ml ONE (13:00)
--- NOTE | 2019-07-31 13:27 | General Progress Note ---
Assessment/Plan Problem List: (1) Perforated bowel ICD Codes: K63.1 - Perforation of intestine (nontraumatic) SNOMED: 16729683 (2) HTN (hypertension) ICD Codes: I10 - Essential (primary) hypertension SNOMED: 82676283 (3) Diverticulitis ICD Codes: K57.92 - Diverticulitis of intestine, part unspecified, without perforation or abscess without bleeding SNOMED: 166109872 Assessment/Plan: abxs diet per surgery Discussed with Dr Sagatsume follow labs IVF DVT prophylaxis Subjective Allergies: Coded Allergies: No Known Allergies (Unverified , 07/30/19) Subjective feels ok Objective Last 24 Hour Vital Signs Date Time Temp Pulse Resp B/P (MAP) Pulse Ox O2 Delivery O2 Flow Rate FiO2 07/31/19 11:20 97.7 69 21 149/82 (104) 97 07/31/19 10:55 97.6 07/31/19 09:52 72 20 98 07/31/19 09:26 Nasal Cannula 2.0 07/31/19 09:24 71 07/31/19 08:00 96.8 65 18 138/80 (99) 98 07/31/19 04:00 98.1 83 18 119/84 (96) 97 07/31/19 04:00 70 07/31/19 03:49 Nasal Cannula 2.0 07/31/19 03:24 2.0 07/31/19 01:15 98.2 82 17 117/82 (94) 96 07/31/19 00:00 85 07/31/19 00:00 3.0 07/31/19 00:00 Nasal Cannula 2.0 07/30/19 20:00 85 07/30/19 20:00 99.0 83 19 125/83 (97) 96 07/30/19 20:00 3.0 07/30/19 19:01 Nasal Cannula 2.0 07/30/19 19:00 99.3 83 16 147/89 (108) 97 07/30/19 18:10 98.4 76 19 145/95 100 Nasal Cannula 3 76 07/30/19 18:00 79 19 143/94 100 Nasal Cannula 3 79 07/30/19 17:45 77 19 153/93 100 Nasal Cannula 3 77 07/30/19 17:27 98 19 147/97 100 Simple Mask 6 100 07/30/19 17:20 99 18 157/98 100 Simple Mask 6 99 07/30/19 17:19 92 20 99 07/30/19 17:11 98.5 96 20 118/86 99 Simple Mask 6 96 Intake and Output 07/30/19 07/31/19 18:59 06:59 Intake Total 1260 ml 1332.5 ml Output Total 150 ml Balance 1110 ml 1332.5 ml Intake IV Total 1260 ml 1332.5 ml Output Urine Total 150 ml # Voids 1 Laboratory Tests 07/31/19 06:16: White Blood Count 11.3H, Red Blood Count 4.38L, Hemoglobin 13.4L, Hematocrit 37.4L, Mean Corpuscular Volume 85, Mean Corpuscular Hemoglobin 30.5, Mean Corpuscular Hemoglobin Concent 35.8, Red Cell Distribution Width 11.4L, Platelet Count 130L, Mean Platelet Volume 9.2, Neutrophils (%) (Auto) , Lymphocytes (%) (Auto) , Monocytes (%) (Auto) , Eosinophils (%) (Auto) , Basophils (%) (Auto) , Differential Total Cells Counted 100, Neutrophils % ( Manual) 86H, Lymphocytes % (Manual) 8L, Monocytes % (Manual) 5, Eosinophils % ( Manual) 1, Basophils % (Manual) 0, Band Neutrophils 0, Platelet Estimate DecreasedL, Platelet Morphology Normal, Red Blood Cell Morphology Normal, Sodium Level 140, Potassium Level 3.8, Chloride Level 104, Carbon Dioxide Level 26, Anion Gap 10, Blood Urea Nitrogen 22H, Creatinine 0.9, Estimat Glomerular Filtration Rate > 60, Glucose Level 149H, Calcium Level 8.4L, Total Bilirubin 1.9H, Direct Bilirubin 0.3, Aspartate Amino Transf (AST/SGOT) 28, Alanine Aminotransferase (ALT/SGPT) 32, Alkaline Phosphatase 63, Total Protein 6.1L, Albumin 3.2L, Globulin 2.9, Albumin/Globulin Ratio 1.1 Height (Feet): 5 Height (Inches): 10.00 Weight (Pounds): 180 Cardiovascular: normal rate Respiratory/Chest: lungs clear Abdomen: soft, tender Devon Mckeon MD Jul 31, 2019 13:27
[2019-07-31 16:00] VITALS: BP 136/71
--- NOTE | 2019-07-31 16:44 | History and Physical Report ---
DATE OF ADMISSION: 07/30/2019 CHIEF COMPLAINT: Abdominal pain. HISTORY OF PRESENT ILLNESS: The patient is a 59-year-old white male, who was brought in by paramedics for sudden onset of abdominal pain. The patient was in his usual state of health until the morning of his presentation, sharp 10/10, nonradiating left-sided lower abdominal pain. The patient was evaluated in the emergency room and was found to have recurrence of diverticulitis. PAST MEDICAL HISTORY: Includes history of hypertension, kidney stones. MEDICATIONS: Reviewed in the EMR. SOCIAL HISTORY: No history of smoking. Occasional alcohol use. ALLERGIES: No known drug allergies. REVIEW OF SYSTEMS: Noncontributory except above. PHYSICAL EXAMINATION: GENERAL: The patient is a pleasant male, in no acute distress. VITAL SIGNS: Blood pressure 126/74, pulse 80, temperature 97.9, respiratory rate is 16. HEENT: [place] conjunctivae. Anicteric sclerae. NECK: Supple. LUNGS: Clear to auscultation. ABDOMEN: Soft. There is tenderness in left lower quadrant EXTREMITIES: No cyanosis or edema. LABORATORY FINDINGS: [place] [address], hematocrit 45.5, hemoglobin 16.2, platelets 185,000. Chemistry panel shows serum sodium 144, potassium 4.1, chloride 103, carbon dioxide 25, BUN 23, creatinine is 1.19, blood sugar is 133. UA was unremarkable. ASSESSMENT: This is a 59-year-old male who was admitted with perforated diverticulitis. PLAN: The patient will be taken to surgery by Dr. Sagastume. Antibiotics will be started. Medications will be adjusted including pain medication. The patient will be on IV fluids. Thank you very much. Devon Mckeon M.D. DR: Karl JOB#: [id number] CC:
--- NOTE | 2019-07-31 19:14 | Consultation ---
DATE OF CONSULTATION: 07/31/2019 INFECTIOUS DISEASES CONSULTATION CONSULTING PHYSICIAN: Dionisio Mckeon M.D. PRIMARY ATTENDING PHYSICIAN: Devon Mckeon M.D. REASON FOR CONSULTATION: Peritonitis, perforated diverticulitis. HISTORY OF PRESENT ILLNESS: The patient is a 59-year-old white male admitted yesterday from home with sudden onset of left-sided abdominal pain. It was 10/10 by the time the patient came to the ER. A CT scan of the abdomen and pelvis showed suspected acute diverticulitis with microperforation of sigmoid colon. The patient went to OR and first had laparoscopic procedure but that change to exploratory laparotomy, omentectomy, and bowel resection, but the patient did not have a drain in place. According to the surgeon, the patient had fecal peritonitis. PAST MEDICAL HISTORY: Hypertension and kidney stone. ALLERGIES: No known drug allergies. MEDICATIONS: Zosyn, Tylenol, Benadryl, morphine, Zofran, heparin. SOCIAL HISTORY: . Work in [employer] [employer]. No history of alcohol, drug abuse, or smoking. REVIEW OF SYSTEMS: No fever. No chills. Some abdominal pain. No bowel movement after the surgery. PHYSICAL EXAMINATION: VITAL SIGNS: Temperature 97.7, pulse 69, blood pressure 149/82. GENERAL APPEARANCE: No acute distress, well developed, normal weight. HEAD AND NECK: [place] conjunctiva. HEART: Normal rate. LUNGS: Clear. ABDOMEN: Mildly distended. Have surgical dressing. EXTREMITIES: No edema. NEUROLOGIC: Awake, alert, oriented x3. LABORATORY AND DIAGNOSTIC DATA: WBC 11.3 coming down from 12.9 at the time of admission, hemoglobin 13.4, hematocrit 37.4, and platelets is 130. Sodium 140, potassium 3.8, chloride 104, bicarb 26, BUN 22, creatinine 0.9, glucose 149. Lactic acid was elevated at the beginning of admission 2.1. CT scan of the abdomen and pelvis in addition to perforation of the sigmoid diverticulitis showed cholelithiasis and nonobstructive bilateral intrarenal calculi. IMPRESSION: 1. Sigmoid diverticulitis with perforation. 2. Peritonitis. 3. Hypertension. 4. Nephrolithiasis. 5. Cholelithiasis. 6. Thrombocytopenia. RECOMMENDATION: Continue Zosyn. We will try to switch to oral antibiotic as soon as the patient can tolerate foot. At the end of my exam, I thank Dr. Devon Mckeon for involving me in the care of this patient. Dionisio Mckeon M.D. DR: Maggie JOB#: [id number] CC: ESTEFANY
[2019-07-31 20:00] VITALS: BP 139/78
[2019-07-31] MEDS ORDERED: Heparin 5000 units/ml inj SUBQ SCH (21:00)
[2019-08-01] VITALS: BP 134/76
[2019-08-01] MEDS: D5 1/2NS w/KCl 20mEq 1,000 ML IV SCH ×3 (02:15→13:59)
[2019-08-01 04:00] VITALS: BP 133/85
[2019-08-01] MEDS: Piperacillin/Tazobactam 3.375 GM in NS 110 ML IVPB SCH ×2 (05:51→13:59)
[2019-08-01 06:44] LABS: HEMATOCRIT 33.8 % (42.0-52.0); HEMOGLOBIN 11.9 G/DL (14.2-18.0); MEAN CORPUSCULAR VOLUME 85 FL (80-99); PLATELET COUNT 115 K/UL (150-450); RED BLOOD COUNT 3.99 M/UL (4.70-6.10); RED CELL DISTRIBUTION WIDTH 11.2 % (11.6-14.8); WHITE BLOOD COUNT 11.3 K/UL (4.8-10.8)
[2019-08-01 07:11] LABS: ANION GAP 9 mmol/L (5-15); BLOOD UREA NITROGEN 9 mg/dL (7-18); CALCIUM 8.8 MG/DL (8.5-10.1); CARBON DIOXIDE 26 MMOL/L (21-32); CHLORIDE 100 MMOL/L (98-107); CREATININE 0.7 MG/DL (0.55-1.30); POTASSIUM 3.8 MMOL/L (3.5-5.1); SODIUM 135 MMOL/L (136-145)
[2019-08-01 08:00] VITALS: BP 139/77
[2019-08-01] MEDS: Heparin 5000 units/ml inj SUBQ SCH (09:54)
[2019-08-01] MEDS ORDERED: LIPITOR10 MG ORAL (11:02)
--- NOTE | 2019-08-01 11:40 | Infectious Diseases Prog Note ---
Assessment/Plan Assessment/Plan IMPRESSION: 1. Sigmoid diverticulitis with perforation. 2. Peritonitis. 3. Hypertension. 4. Nephrolithiasis. 5. Cholelithiasis. 6. Thrombocytopenia. RECOMMENDATION: Continue Zosyn. We will try to switch to oral antibiotic as soon as the patient can tolerate food. Subjective ROS Limited/Unobtainable: No Constitutional: Reports: no symptoms Respiratory: Reports: no symptoms Gastrointestinal/Abdominal: Reports: other - pain in surgical site Genitourinary: Reports: no symptoms Allergies: Coded Allergies: No Known Allergies (Unverified , 07/30/19) Objective Vital Signs Last 24 Hour Vital Signs Date Time Temp Pulse Resp B/P (MAP) Pulse Ox O2 Delivery O2 Flow Rate FiO2 08/01/19 04:00 98.0 85 18 133/85 (101) 95 08/01/19 00:00 98.8 81 16 134/76 (95) 97 07/31/19 21:00 Room Air 07/31/19 20:00 99.4 80 17 139/78 (98) 94 07/31/19 19:04 98.6 07/31/19 16:00 98.6 75 20 136/71 (92) 96 07/31/19 14:56 97.7 Height (Feet): 5 Height (Inches): 10.00 Weight (Pounds): 180 General Appearance: no acute distress HEENT: mucous membranes moist Respiratory/Chest: lungs clear Cardiovascular: normal rate Abdomen: soft, non tender Extremities: no edema Neurologic/Psychiatric: alert, oriented x 3, responsive Laboratory Tests Test 08/01/19 05:20 White Blood Count 11.3 K/UL (4.8-10.8) H Red Blood Count 3.99 M/UL (4.70-6.10) L Hemoglobin 11.9 G/DL (14.2-18.0) L Hematocrit 33.8 % (42.0-52.0) L Mean Corpuscular Volume 85 FL (80-99) Mean Corpuscular Hemoglobin 29.8 PG (27.0-31.0) Mean Corpuscular Hemoglobin Concent 35.2 G/DL (32.0-36.0) Red Cell Distribution Width 11.2 % (11.6-14.8) L Platelet Count 115 K/UL (150-450) L Mean Platelet Volume 9.1 FL (6.5-10.1) Neutrophils (%) (Auto) % (45.0-75.0) Lymphocytes (%) (Auto) % (20.0-45.0) Monocytes (%) (Auto) % (1.0-10.0) Eosinophils (%) (Auto) % (0.0-3.0) Basophils (%) (Auto) % (0.0-2.0) Differential Total Cells Counted 100 Neutrophils % (Manual) 84 % (45-75) H Lymphocytes % (Manual) 9 % (20-45) L Monocytes % (Manual) 5 % (1-10) Eosinophils % (Manual) 2 % (0-3) Basophils % (Manual) 0 % (0-2) Band Neutrophils 0 % (0-8) Platelet Estimate Decreased L Platelet Morphology Normal Ovalocytes 1+ Sodium Level 135 MMOL/L (136-145) L Potassium Level 3.8 MMOL/L (3.5-5.1) Chloride Level 100 MMOL/L (98-107) Carbon Dioxide Level 26 MMOL/L (21-32) Anion Gap 9 mmol/L (5-15) Blood Urea Nitrogen 9 mg/dL (7-18) Creatinine 0.7 MG/DL (0.55-1.30) Estimat Glomerular Filtration Rate > 60 mL/min (>60) Glucose Level 133 MG/DL (74-106) H Calcium Level 8.8 MG/DL (8.5-10.1) Current Medications Medications (Trade) Dose Ordered Sig/José Miguel Route PRN Reason Start Time Stop Time Status Last Admin Dose Admin Acetaminophen (Tylenol) 650 mg Q6H PRN ORAL Mild Pain (Pain Scale 1-3) 07/31/19 10:15 08/29/19 10:14 Alprazolam (Xanax) 1 mg BEDTIME ORAL 08/01/19 21:00 08/08/19 20:59 Atenolol (Tenormin) 25 mg DAILY ORAL 08/01/19 12:00 08/31/19 11:59 Dextrose/ Electrolytes 1,000 ml @ 125 mls/hr Q8H IV 07/31/19 10:15 08/29/19 18:59 07/31/19 18:33 Diphenhydramine HCl (Benadryl) 12.5 mg Q6H PRN IVP Itching/Pruritis 07/31/19 10:15 08/29/19 10:14 Heparin Sodium (Porcine) (Heparin 5000 units/ml) 5,000 units EVERY 12 HOURS SUBQ 07/31/19 09:00 09/13/19 20:59 08/01/19 09:54 Morphine Sulfate (Morphine Sulfate) 1 mg Q4H PRN IVP pain scale 1-3 07/31/19 10:15 08/06/19 10:14 07/31/19 18:34 Morphine Sulfate (Morphine Sulfate) 2 mg Q4H PRN IVP pain scale 4-6 07/31/19 10:15 08/06/19 10:14 Morphine Sulfate (Morphine Sulfate) 4 mg Q4H PRN IVP pain score 7-10 07/31/19 10:15 08/06/19 10:14 07/31/19 14:26 Ondansetron HCl (Zofran) 4 mg Q6H PRN IVP Nausea & Vomiting 07/31/19 10:15 08/29/19 10:14 08/01/19 05:50 Piperacillin Sod/ Tazobactam Sod 3.375 gm/Sodium Chloride 110 ml @ 27.5 mls/hr EVERY 8 HOURS IVPB 07/31/19 14:00 08/06/19 21:59 08/01/19 05:51 Dionisio Mckeon MD Aug 01, 2019 11:40
[2019-08-01 12:00] VITALS: BP 135/79
[2019-08-01] MEDS ORDERED: Atenolol 25mg tab ORAL SCH (12:00)
--- NOTE | 2019-08-01 13:12 | General Progress Note ---
Assessment/Plan Problem List: (1) Perforated bowel ICD Codes: K63.1 - Perforation of intestine (nontraumatic) SNOMED: 01433466 (2) HTN (hypertension) ICD Codes: I10 - Essential (primary) hypertension SNOMED: 02184935 (3) Diverticulitis ICD Codes: K57.92 - Diverticulitis of intestine, part unspecified, without perforation or abscess without bleeding SNOMED: 173648162 Assessment/Plan: abxs diet per surgery follow labs IVF DVT prophylaxis Subjective Allergies: Coded Allergies: No Known Allergies (Unverified , 07/30/19) Subjective feels ok has not passed gas Objective Last 24 Hour Vital Signs Date Time Temp Pulse Resp B/P (MAP) Pulse Ox O2 Delivery O2 Flow Rate FiO2 08/01/19 08:00 98.9 76 20 139/77 (97) 97 08/01/19 04:00 98.0 85 18 133/85 (101) 95 08/01/19 00:00 98.8 81 16 134/76 (95) 97 07/31/19 21:00 Room Air 07/31/19 20:00 99.4 80 17 139/78 (98) 94 07/31/19 19:04 98.6 07/31/19 16:00 98.6 75 20 136/71 (92) 96 07/31/19 14:56 97.7 Intake and Output 07/31/19 08/01/19 19:00 07:00 Intake Total 992.5 ml 1012.5 ml Output Total 750 ml 850 ml Balance 242.5 ml 162.5 ml Intake IV Total 992.5 ml 1012.5 ml Output Urine Total 750 ml 850 ml Laboratory Tests 08/01/19 05:20: White Blood Count 11.3H, Red Blood Count 3.99L, Hemoglobin 11.9L, Hematocrit 33.8L, Mean Corpuscular Volume 85, Mean Corpuscular Hemoglobin 29.8, Mean Corpuscular Hemoglobin Concent 35.2, Red Cell Distribution Width 11.2L, Platelet Count 115L, Mean Platelet Volume 9.1, Neutrophils (%) (Auto) , Lymphocytes (%) (Auto) , Monocytes (%) (Auto) , Eosinophils (%) (Auto) , Basophils (%) (Auto) , Differential Total Cells Counted 100, Neutrophils % ( Manual) 84H, Lymphocytes % (Manual) 9L, Monocytes % (Manual) 5, Eosinophils % ( Manual) 2, Basophils % (Manual) 0, Band Neutrophils 0, Platelet Estimate DecreasedL, Platelet Morphology Normal, Ovalocytes 1+, Sodium Level 135L, Potassium Level 3.8, Chloride Level 100, Carbon Dioxide Level 26, Anion Gap 9, Blood Urea Nitrogen 9, Creatinine 0.7, Estimat Glomerular Filtration Rate > 60, Glucose Level 133H, Calcium Level 8.8 Height (Feet): 5 Height (Inches): 10.00 Weight (Pounds): 180 Cardiovascular: normal rate Respiratory/Chest: lungs clear Abdomen: soft Devon Mckeon MD Aug 01, 2019 13:12
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
[2019-08-01 16:00] VITALS: BP 151/83
[2019-08-01 18:45] VITALS: BP 139/84
[2019-08-01] MEDS ORDERED: Tubing IV Secondary IV ONE (19:44)
[2019-08-01] MEDS ORDERED: ALPRAZolam 0.5mg tab ORAL SCH (21:00)
--- NOTE | 2019-08-03 17:29 | Discharge Summary ---
Discharge Summary Discharge Summary _ DATE OF ADMISSION: 07/30/2019 DATE OF DISCHARGE: 08/01/2019 DISCHARGED BY: Dr. Devon Mckeon REASON FOR ADMISSION: 59 years old male with past medical history of hypertension, kidney stones, was brought by paramedics due to sudden onset of abdominal pain. Pain reported as sharp, nonradiating, left-sided, 10 out of 10 on a scale 1-10. Patient was evaluated in the emergency room and was found to have acute diverticulitis. CT scan of the abdomen and pelvis revealed acute diverticulitis with microperforation , most likely of the sigmoid colon. Cholelithiasis. Mesenteric root lymphadenopathy, suspected reactive and related to the above. Laboratory work-up revealed leukocytosis , stable hemoglobin, hematocrit and platelet count. BUN 23, creatinine 1.1. Lactic acid 2.1. Glucose 133. Stable electrolytes. Total bilirubin 1.1 direct bilirubin 0.2, stable LFT. Patient admitted for further management. CONSULTANTS: ID specialist Dr. Dionisio Coughlin surgery Dr. Sagastume [facility] COURSE: Patient admitted and started on empiric antibiotic and IV fluids. Patient was kept n.p.o. Surgeon seen and evaluated patient. Initially attempted diagnostic laparoscopy was converted to exploratory laparotomy. Patient subsequently undergone exploratory laparotomy with left colectomy with primary end-to-end handsewn anastomosis, mobilization of splenic flexure, partial omentectomy, open lysis of adhesions and abdominal washout with closure. Patient tolerated procedure well. Postoperatively patient was kept n.p.o. and continued on IV antibiotic and IV fluids. Pain management was addressed. Antiemetic were on board as needed. Patient was mobilized . Incentive spirometry use was encouraged while in the bed every hour x 10. Valentin was discontinued in one day. DVT prophylaxis provided. Transfer was arranged to [facility] as per patient's insurance. Patient was stable for transfer. FINAL DIAGNOSES: Perforated viscus due to acute sigmoid diverticulitis Abdominal peritonitis Status post exploratory laparotomy with left colectomy Nephrolithiasis Hypertension DISCHARGE MEDICATIONS: See Medication Reconciliation list. DISCHARGE INSTRUCTIONS: Patient was transferred to [facility] as per insurance. I have been assigned to dictate discharge summary for this account. I was not involved in the patient's management. Odette Vuong NP Aug 03, 2019 17:29
== END 2019-08-01 19:45 | disposition short-term general hospital (02) | DRG 329 ==
LOC: EDBD 10:20 → EMR 10:45 → EDBEDREQ 11:50 → 2E 13:00 → EMR 13:19 → EDBEDREQ 16:07 → 3E 07-31 10:00
PROC: 0DNU0ZZ Release Omentum, Open Approach (ICD-10-PCS; principal; 2019-07-30 13:00)
PROC: 0WJG4ZZ Inspection of Peritoneal Cavity, Percutaneous Endoscopic Approach (ICD-10-PCS; principal; 2019-07-30 13:00)
PROC: 0DBU0ZZ Excision of Omentum, Open Approach (ICD-10-PCS; principal; 2019-07-30 13:00)
PROC: 0DBN0ZZ Excision of Sigmoid Colon, Open Approach (ICD-10-PCS; principal; 2019-07-30 13:00)
DX: K57.20 Diverticulitis of large intestine with perforation and abscess without bleeding (principal); K65.9 Peritonitis, unspecified; I10 Essential (primary) hypertension; N20.0 Calculus of kidney; K80.20 Calculus of gallbladder without cholecystitis without obstruction; D69.6 Thrombocytopenia, unspecified; Z53.31 Laparoscopic surgical procedure converted to open procedure; K66.0 Peritoneal adhesions (postprocedural) (postinfection)
CPT/HCPCS: 36415; 74176; 80048; 80053; 81003; 82248; 83605; 83690; 85007; 85025; 85610; 85730; 86850; 86900; 86901; 94003; 94150; 96361; 96365; 96375; 96376; 99291; J2250; J2405; J2710; J7030